=== PATIENT | female | born 1965 | race Two or more races ===

== ENCOUNTER 2024-01-05 07:52 | Emergency (ER) | payer OTHER ==
[~2024-01-05] VITALS: Ht 162.6 cm; Wt 61.4 kg
[2024-01-05] MEDS ORDERED: METF-1185 PO (08:02)
[2024-01-05 08:03] VITALS: TEMP 98
[2024-01-05] MEDS ORDERED: ACET-66 PO (09:08)
[2024-01-05] MEDS ORDERED: IBUP-1554 PO (09:08)
[2024-01-05] MEDS: IBUPROFEN 600 MG TABLET PO ONE (09:24)
[2024-01-05 09:33] VITALS: BP 122/69; PULSE 70; RESP 16
== END 2024-01-05 09:53 | disposition home or self-care (01) ==
LOC: EMS 07:53
DX: S83.91XA Sprain of unspecified site of right knee, initial encounter (principal); E11.9 Type 2 diabetes mellitus without complications; Z90.49 Acquired absence of other specified parts of digestive tract; Z98.51 Tubal ligation status; Z88.0 Allergy status to penicillin; Z98.890 Other specified postprocedural states; X58.XXXA Exposure to other specified factors, initial encounter; Y93.89 Activity, other specified; Y92.89 Other specified places as the place of occurrence of the external cause; Y99.8 Other external cause status
CPT/HCPCS: 82962; 99283